=== PATIENT | female | born 2005 | race Caucasian/White ===

== ENCOUNTER 2025-05-14 05:41 | Emergency (ER) | payer OTHER, SELFPAY ==
[2025-05-14 05:43] VITALS: BP 118/74; PULSE 77; TEMP 36.8; O2SAT 100; BMI 19.5
--- NOTE | 2025-05-14 05:53 | XR_ITS ---
[facility] [place] [id number] Patient Name: CHARLES POOLE MRN: [id number] date: 2005 Sex: F Assigned Patient Location: ED.MAIN Current Patient Location: Accession/Order Number: [id number] Exam Date: 05/14/2025 08:32 Report Date: 05/14/2025 08:33 At the request of: CESIA LOOMIS Procedure: XR wrist LT min 3V LEFT WRIST - 3 views CLINICAL HISTORY: wrist pain COMPARISON: None FINDINGS: No focal soft tissue abnormality. No acute bony process is seen. Joint spaces appear maintained. No bony erosions. XR/XR wrist LT min 3V IMPRESSION: NO ACUTE BONY PROCESS. Impression dictated by: Peewee Manzano Jr., D.O. 05/14/2025 8:33 AM Dictation Location: [place] [address] Electronically authenticated by: [id number] Y Date: 05/14/2025 08:33
--- OUTSIDE RECORDS SUMMARY | 2025-05-14 05:58 | XMS_ITS | Encounter Summary ---
Author Organization [facility] Address [address] [place] [address] Care Team Providers Care Office Messenger Helper Name Role Phone Unavailable Primary Care Provider Unavailabl e Source Comments In the event this information is protected by the Federal Confidentiality of Alcohol and Drug AbusePatient Records regulations: The Federal rules restrict any use of the information to criminally investigate or prosecute any alcohol or drug abuse patient.[facility] Encounter Details Date Type Department Care Team (Late st Contact Info) Description 01/29/2023 Patient Msg Psychology [id number] [place] [id number] Mishel Ibarra, Research Nurse Missed Appointment Social History Tobacco Use Types Packs/Day Years Used Date Smoking Tobacco: Never Smokeless Tobacco: Never Alcohol Use Standard Drinks/Week Comments Never 0 (1 standard drink = 0.6 oz pur e alcohol) PHQ-2 Answer Date Recorded PHQ-2 score 3 01/29/2023 [place] Depression Scale Answer Date Recorded [place] Depression Scale Total 14 12/04/2022 The thought of harming myself has occurred to me . Never 12/04/2022 Area Deprivation Index Answer Date Jonathan rded National Score (1-100), lower number is lower ri sk 39 12/04/2022 State Score (1-10), lower number is lower risk N ot on file 12/04/2022 Data from: https://www.neighborhoodatlas.[facility]/. Last address used for calculation [address] [facility] 12/04/2022 Comments No Sex and Gender Information Value Date Recorded Sex Assigned at Not on file Legal Sex Female 11:43 AM EDT Gender Identity Not on file Sexual Orientation Not on file documented as of this encounter Functional Status * Are you deaf or do you have serious difficulty hearing? Answer Date of Assessment Author No 11/23/2022 11:55 AM Fercho Ross RN * Are you blind or do you have serious difficulty seeing, even when wearing glasses? Answer Date of Assessment Author No 11/23/2022 11:55 AM Fercho Ross RN * Do you have serious difficulty walking or climbing stairs? Answer Date of Assessment Author No 11/23/2022 11:55 AM Fercho Ross RN * Do you have difficulty dressing or bathing? Answer Date of Assessment Author No 11/23/2022 11:55 AM Fercho Ross RN * Because of a physical, mental, or emotional condition, do you have difficulty doing errands alone such as visiting a doctor's office or shopping? Answer Date of Assessment Author No 11/10/2022 10:07 PM Concetta Christy RN documented as of this encounter Mental Status * Because of a physical, mental, or emotional condition, do you have serious difficulty concentrating, remembering, or making decisions? Answer Entry Date Author No 11/23/2022 11:55 AM Fercho Ross RN documented in this encounter Plan of Treatment Not on file documented as of this encounter Visit Diagnoses Not on filedocumented in this encounter
--- OUTSIDE RECORDS SUMMARY | 2025-05-14 05:58 | XMS_ITS | Encounter Summary ---
Author Organization [facility] Address [address] [place] [address] Care Team Providers Care Sexton Helper Name Role Phone Unavailable Primary Care Provider Unavailabl e Source Comments In the event this information is protected by the Federal Confidentiality of Alcohol and Drug AbusePatient Records regulations: The Federal rules restrict any use of the information to criminally investigate or prosecute any alcohol or drug abuse patient.[facility] Encounter Details Date Type Department Care Team (Late st Contact Info) Description 12/30/2022 Patient Msg Psychology [address] [place] [phone] Mishel Ibarra, Research Nurse After-Visit Summary Social History Tobacco Use Types Packs/Day Years Used Date Smoking Tobacco: Never Smokeless Tobacco: Never Alcohol Use Standard Drinks/Week Comments Never 0 (1 standard drink = 0.6 oz pur e alcohol) PHQ-2 Answer Date Recorded PHQ-2 score 3 12/30/2022 [place] Depression Scale Answer Date Recorded [place] Depression Scale Total 14 12/04/2022 The thought of harming myself has occurred to me . Never 12/04/2022 Area Deprivation Index Answer Date Jonathan rded National Score (1-100), lower number is lower ri sk 39 12/04/2022 State Score (1-10), lower number is lower risk N ot on file 12/04/2022 Data from: https://www.neighborhoodatlas.[facility]/. Last address used for calculation [address] [facility] 12/04/2022 Comments No Sex and Gender Information [...]
--- OUTSIDE RECORDS SUMMARY | 2025-05-14 05:58 | XMS_ITS | Clinical Summary ---
Author Organization [facility] Address [address] [place] [address] Care Team Providers Care Platform Stapler Name Role Phone Unavailable Primary Care Provider Unavailabl e Allergies No known active allergies Medications * This document contains information received from the source organization and may not represent a complete record from that organization. No known medications Active Problems Problem Noted Date Diagnosed Date Young primigravida in first trimester 04/29/2022 Resolved Problems Problem Noted Date Diagnosed Date Resolved Date Normal labor 11/20/2022 12/13/2023 Encounter for planned induction of labor 11/19/2022 12/13/2023 39 weeks gestation of 11/10/2022 12/13/2023 Overview (11/10/2022): - GBS neg - Consent signed (CNM), pt plans on does not wish for IOL at this time. - Pt plans on - BC nexplanon - F/u 1wk RPN - Reviewed s/o labor, indications to call office at [phone]/proceed to hospital. 04/29/2022 12/13/2023 Immunizations Immunization Administration Dates Next Due influenza (IIV4) vaccine, ag e 6 mo - 64 yr, quadrivalent, PF (AFLURIA, FLUARIX, FLULAVAL, FLUZONE) 10/12/2022 tetanus diphtheria pertussis (Tdap) vaccine, age 7+ yr (ADACEL, BOOSTRIX) 10/01/2022 Social History Tobacco Use Types Packs/Day Years Used Date Smoking Tobacco: Never Smokeless Tobacco: Never Tobacco Cessation:Counseling Given: Not Answered Alcohol Use Standard Drinks/Week Comments Never 0 (1 standard drink = 0.6 oz pur e alcohol) PHQ-2 Answer Date Recorded PHQ-2 score 3 01/29/2023 [place] Depression Scale Answer Date Recorded [place] Depression Scale Total 14 12/04/2022 The thought of harming myself has occurred to me . Never 12/04/2022 Area Deprivation Index Answer Date Jonathan rded National Score (1-100), lower number is lower ri sk 39 12/13/2023 State Score (1-10), lower number is lower risk 2 12/13/2023 Data from: https://www.neighborhoodatlas.medicine.[facility]/. Last address used for calculation [address] [facility] 12/13/2023 Comments No Sex and Gender Information Value Date Recorded Sex Assigned at Not on file Legal Sex Female 11:43 AM EDT Gender Identity Not on file Sexual Orientation Not on file Last Filed Vital Signs Vital Sign Reading Time Taken Comments Blood Pressure 132/75 12/13/2023 7:13 AM EST Pulse 86 12/13/2023 7:13 AM EST Temperature 36.8 C (98.2 F) 11/23/2022 9:07 AM EST Respiratory Rate 16 11/23/2022 9:07 AM EST Oxygen Saturation 97% 11/23/2022 9:07 AM EST Inhaled Oxygen Concentration - - Weight 43.2 kg (95 lb 3.8 oz) 12/13/2023 7:13 AM EST Height 149.9 cm (4' 11 ) 12/13/2023 7:13 AM EST Body Mass Index 19.24 12/13/2023 7:13 AM EST Plan of Treatment Health Maintenance Due Date Last Done Comments Peds To Adult Transition Ini tial Discussion 2016 HPV Vaccine (2 - 2-dose series) 12/23/2017 7 Peds To Adult Transition Mabel ual Assessment 2018 Meningococcal B Vaccine (1 o f 2 - Standard) 2020 Anxiety Screening 2022 Depression Screening 2022 Chlamydia Screening (18-24) 04/29/2023 04/29/2022 GC (Gonorrhea) Screening (18-24) 04/29/2023 04/29/20 22 Covid-19 Vaccine (2023-2 5 season) 2024 Influenza Vaccine (#1) 2025 2, 05/25/2015, 08/14/2009, Additional history exists DTaP,Tdap,Td Vaccine (8 - Td or Tdap) 10/01/2032 10/01/2022, 03/01/2017, 08/23/2008, Additional history exists Hepatitis B Vaccine Completed 02/09/2005, 2004, 2004 HIV Screening Completed 06/22/2022 Hepatitis C Screening Completed 06/22/2022 Procedures Procedure Name Priority Date/Time Associated Diagnosis Comments HIV 1/2 COMBO WITH REFLEX TO DIFFERENTIATION Routine 06/22/2022 12:16 PM EDT Young primigravida in first trimester Encounter for care in first trimester of first HEPATITIS C ANTIBODY IA WITH CONFIRMATION Routine 06/22/2022 12:16 PM EDT Young primigravida in first trimester Encounter for care in first trimester of first (INACTIVE)GC/CHLAMYDIA AMPLF, URINE Routine 04/29/2022 11:36 AM EDT Young primigravida in first trimester Encounter for care in first trimester of first from Last 3 Months or Most Recently Relevant to Health Maintenance Results * HIV 1 2 COMBO(AG/AB),WITH REFLEX TO DIFFERENTIATION (06/22/2022 12:16 PM EDT) HIV 12 Combo (Ag/Ab) Nonreactive Nonreactive 06/22/2022 7:20 PM EDT [facility] HIV-1/2 AB (Confirmatory) 06/22/2022 7:20 PM EDT [facility] Comment:Test not indicated. HIV Interpretation 06/22/2022 7:20 PM EDT [facility] Comment: No evidence of HIV-1 or HIV-2 infection. Should recent infection be suspected, repeat testing may be considered 2-3 weeks after this draw. [place] Rev. Code 3701.243(E): This information has been disclosed to you from confidential records protected from disclosure by state law. You shall make no further disclosure of this information without the specific, written, and informed release of the individual to whom it pertains or as otherwise permitted by state law. A general authorization for the release of medical or other information is not sufficient for the purpose of the release of HIV test results or diagnoses. Blood BLOOD SPECIMEN / Unknown Venipuncture / Unknown 06/22/2022 12:16 PM EDT 06/22/2022 12:16 PM EDT Vani Hernandez PRINTER MAINTAINER.[facility] Fin al Result Performing Organization Address City/[facility]/ZIP Co de Phone Number [facility] [address] [place] [id number], [place] * HEP C AB IA W/CONF SCRN (06/22/2022 12:16 PM EDT) Hep C Antibody IA Negative Negative 06/22/2022 6:57 PM EDT [facility] Comment:The result suggests no evidence of active infection with Hepatitis C virus. Should recent infection be suspected, repeat testing may be considered 4-6 weeks after this draw. Blood BLOOD SPECIMEN / Unknown Venipuncture / Unknown 06/22/2022 12:16 PM EDT 06/22/2022 12:16 PM EDT Vani Hernandez PRINTER MAINTAINER.[facility] Fin al Result Performing Organization Address [facility] Co de Phone Number [facility] [place] [phone], [place] * GC/CHLAMYDIA AMPLIF, URINE (04/29/2022 11:36 AM EDT) Neisseria gonorrhoeae RNA Negative for Neisseria gonorrhoeae by amplification Negative for Neisseria gonorrhoeae by amplification PANTHER SYSTEM HOLOGIC 04/30/2022 2:17 AM EDT [facility] Chlamydia trachomatis RNA Negative for Chlamydia trachomatis by amplification Negative for Chlamydia trachomatis by amplificaton PANTHER SYSTEM HOLOGIC 04/30/2022 2:17 AM EDT [facility] Urine URINE SPECIMEN / Unknown Non Blood / Unknown 04/29/2022 11:36 AM EDT 04/29/2022 5:10 PM EDT Narrative [facility] - 04/30/2022 2:17 AM EDT For screening asymptomatic women, a vaginal swab specimen(APTIMA vaginal swab [id number]) is optimal. Urine specimens have reduced sensitivity for Chlamydia trachomatis or Neisseria gonorrhoeae infection in female patients without symptoms. us Vani Hernandez APRN.[facility] [employer] Fin al Result [facility] [address] [facility] [address] [place] [address], [place] from Last 3 Months or Most Recently Relevant to Health Maintenance Insurance [employer] MEDICAID [employer]
--- OUTSIDE RECORDS SUMMARY | 2025-05-14 05:58 | XMS_ITS | Encounter Summary ---
Author Organization [facility] Address [address] [place] [address] Care Team Providers Care Chemical Research Technician Name Role Phone Unavailable Primary Care Provider Unavailabl e Source Comments In the event this information is protected by the Federal Confidentiality of Alcohol and Drug AbusePatient Records regulations: The Federal rules restrict any use of the information to criminally investigate or prosecute any alcohol or drug abuse patient.[facility] Encounter Details Date Type Department Care Team (Late st Contact Info) Description 12/03/2022 Patient [facility] [place] [address] [place] [id number] Provider, [facility] Unable to Reach You Social History Tobacco Use Types Packs/Day Years Used Date Smoking Tobacco: Never Smokeless Tobacco: Never Alcohol Use Standard Drinks/Week Comments Never 0 (1 standard drink = 0.6 oz pur e alcohol) [place] Depression Scale Answer Date Recorded [place] Depression Scale Total 14 12/04/2022 The thought of harming myself has occurred to me . Never 12/04/2022 Area Deprivation Index Answer Date Jonathan rded National Score (1-100), lower number is lower ri sk 39 12/04/2022 State Score (1-10), lower number is lower risk N ot on file 12/04/2022 Data from: https://www.neighborhoodatlas.medicine.[facility].edu/. Last address used for calculation [address] [facility] 12/04/2022 Comments No Sex and Gender Information [...]
--- OUTSIDE RECORDS SUMMARY | 2025-05-14 05:58 | XMS_ITS | Encounter Summary ---
Author Organization [facility] Address [facility] [place] [address] Care Team Providers Care Mayonnaise Mixer Name Role Phone Unavailable Primary Care Provider Unavailabl e Source Comments In the event this information is protected by the Federal Confidentiality of Alcohol and Drug AbusePatient Records regulations: The Federal rules restrict any use of the information to criminally investigate or prosecute any alcohol or drug abuse patient.[facility] Encounter Details Date Type Department Care Team (Late st Contact Info) Description 12/04/2022 Patient Msg Obstetrics/Gynecology [address] [facility] [address] [place] [address] Provider, [facility] resources Social History Tobacco Use Types Packs/Day Years Used Date Smoking Tobacco: Never Smokeless Tobacco: Never Alcohol Use Standard Drinks/Week Comments Never 0 (1 standard drink = 0.6 oz pur e alcohol) [place] Depression Scale Answer Date Recorded [place] Depression Scale Total 14 12/04/2022 The thought of harming myself has occurred to me . Never 12/04/2022 Area Deprivation Index Answer Date Jonathan rded National Score (1-100), lower number is lower ri sk 39 12/04/2022 State Score (1-10), lower number is lower risk N ot on file 12/04/2022 Data from: https://www.neighborhoodatlas.medicine.[facility].edu/. Last address used for calculation [address] [facility] 12/04/2022 Comments No Sex and Gender Information [...]
--- OUTSIDE RECORDS SUMMARY | 2025-05-14 05:58 | XMS_ITS | Clinical Summary ---
Author Organization [facility] Address [id number] [place] [address] Care Team Providers Care Vocational Education Professional Name Role Phone Services, [facility] Primary Care Provider Allergies No known active allergies Medications * This document contains information received from the source organization and may not represent a complete record from that organization. doxylamine-pyri doxine, vit B6, (DICLEGIS) 10-10 mg tablet,delayed release (DR/EC) Take 2 tablets by mouth in the morning. 30 tablet Active Additional Information Patient not taking.Reported on 04/20/2024 Active Problems Problem Noted Date Diagnosed Date Generalized anxiety disorder 11/22/2021 Current moderate episode of major depressive disorder without prior episode 11/20/2021 Ingestion of substance 11/18/2021 Resolved Problems Problem Noted Date Diagnosed Date Resolved Date Depression with suicidal ideation 11/18/2021 11/22/2021 Pneumonia 09/14/2021 11/22/2021 Family History Medical History Relation Name Comments Schizophrenia Father Relation Name Status Comments Father Social History Tobacco Use Types Packs/Day Years Used Date Smoking Tobacco: Never Smokeless Tobacco: Never Alcohol Use Standard Drinks/Week Comments No 0 (1 standard drink = 0.6 oz pur e alcohol) Childcare Answer Date Recorded Childcare Unknown 04/05/2019 Employment Answer Date Recorded Employment Unknown 04/05/2019 Hunger Screening Answer Date Recorded Within the past 12 months we worried whether our food would run out before we got money to buy more. Never True 06/22/2024 Within the past 12 months th e food we bought just didn't last and we didn't have money to get more. Never True 06/22/2024 Purpose - Life Answer Date Recorded Purpose and direction in life Unknown Comments Unknown Sex and Gender Information Value Date Recorded Sex Assigned at Not on file Legal Sex Female 12:04 PM EDT Gender Identity Not on file Sexual Orientation Not on file Last Filed Vital Signs Vital Sign Reading Time Taken Comments Blood Pressure 128/85 06/22/2024 1:21 PM EDT Pulse 81 06/22/2024 1:21 PM EDT Temperature 36.8 C (98.2 F) 06/22/2024 1:21 PM EDT Respiratory Rate 16 06/22/2024 1:21 PM EDT Oxygen Saturation 100% 06/22/2024 1:21 PM EDT Inhaled Oxygen Concentration - - Weight 44.5 kg (98 lb) 06/22/2024 1:21 PM EDT Height 152.4 cm (5') 06/22/2024 1:21 PM EDT Body Mass Index 19.14 06/22/2024 1:21 PM EDT Plan of Treatment Health Maintenance Due Date Last Done Comments Depression Screening 2016 Chlamydia Screening 04/29/2023 04/29/2022 Adult BMI Screening 06/22/2025 06/22/2024 Tobacco Screening 06/22/2025 06/22/2024 Influenza Vaccine 06/25/2025 10/12/2022, , 08/14/2009, Additional history exists DTaP,Tdap and Td Vaccines (8 - Td or Tdap) 10/01/2032 10/01/2022, 03/01/2017, 08/23/2008, Additional history exists Medical Devices Not on file Advance Directives * Full Code (Latest Code Status on File) Date Activated Date Inactivated Comments 11/20/2021 9:13 AM 11/22/2021 3:44 PM * Full Code Date Activated Date Inactivated Comments 11/18/2021 6:19 AM 11/18/2021 5:19 PM * Full Code Date Activated Date Inactivated Comments 09/14/2021 3:29 PM 09/16/2021 5:17 PM Care Teams Vocational Education Professional Relationship Specialty Start Date End Date Services, [facility] [address] [place], [place] PCP - General Family Medicine 05/30/17
--- OUTSIDE RECORDS SUMMARY | 2025-05-14 05:59 | XMS_ITS | Encounter Summary ---
Author Organization [facility] Address [address] [place] [address] Care Team Providers Care Paper Reel Operator Name Role Phone Unavailable Primary Care Provider Unavailabl e Source Comments In the event this information is protected by the Federal Confidentiality of Alcohol and Drug AbusePatient Records regulations: The Federal rules restrict any use of the information to criminally investigate or prosecute any alcohol or drug abuse patient.[facility] Encounter Details Date Type Department Care Team (Late st Contact Info) Description 01/21/2024 Patient Msg Neurology [address] [place] [phone] Provider, Cc New Provider Social History Tobacco Use Types Packs/Day Years Used Date Smoking Tobacco: Never Smokeless Tobacco: Never Alcohol Use Standard Drinks/Week Comments Never 0 (1 standard drink = 0.6 oz pur e alcohol) PHQ-2 Answer Date Recorded PHQ-2 score 3 01/29/2023 [place] Depression Scale Answer Date Recorded [place] Depression Scale Total 14 12/04/2022 The thought of harming myself has occurred to me . Never 12/04/2022 Area Deprivation Index Answer Date Jonathan rded National Score (1-100), lower number is lower ri sk 39 12/13/2023 State Score (1-10), lower number is lower risk 2 12/13/2023 Data from: https://www.neighborhoodatlas.[facility]/. Last address used for calculation [address] [facility] 12/13/2023 Comments No [...]
--- OUTSIDE RECORDS SUMMARY | 2025-05-14 05:59 | XMS_ITS | Clinical Summary ---
Author Organization [facility] Address [address] [facility], [address] [place] [address] Care Team Providers Care Crayon Molding Machine Operator Name Role Phone Vega Amos MD Primary Care Provider [phone] Allergies No known active allergies Medications acetaminophen (TYLENOL) 325 MG tablet Take 650 mg by mouth every 6 hours as needed for Pain Active MV-Min-Fe Fum-FA-DHA ( 1 PO) Take by mouth Active Active Problems Problem Noted Date Diagnosed Date Viral upper respiratory infection 07/15/2022 22 weeks gestation of 07/15/2022 Poor growth affecting management of mother in second trimester 07/15/2022 Social History Tobacco Use Types Packs/Day Years Used Date Smoking Tobacco: Never Smokeless Tobacco: Never Tobacco Cessation:Counseling Given: Not Answered Alcohol Use Standard Drinks/Week Comments Never 0 (1 standard drink = 0.6 oz pur e alcohol) AUDIT-C Answer Date Recorded Q1: How often do you have a drink containing alcohol? Never 12/02/2022 Q2: How many drinks containi ng alcohol do you have on a typical day when you are drinking? Patient does not drink Q3: How often do you have si x or more drinks on one occasion? Never 12/02/2022 Comments No Sex and Gender Information Value Date Recorded Sex Assigned at Not on file Legal Sex Female 1:28 PM EDT Gender Identity Not on file Sexual Orientation Not on file Last Filed Vital Signs Vital Sign Reading Time Taken Comments Blood Pressure 132/83 12/02/2022 11:08 PM EST Pulse 89 12/02/2022 11:08 PM EST Temperature 36.7 C (98.1 F) 12/02/2022 11:08 PM EST Respiratory Rate 18 12/02/2022 11:08 PM EST Oxygen Saturation 99% 12/02/2022 11:08 PM EST Inhaled Oxygen Concentration - - Weight 54.9 kg (121 lb) 12/02/2022 11:08 PM EST Height 154.9 cm (5' 1 ) 12/02/2022 11:08 PM EST Body Mass Index 22.86 12/02/2022 11:08 PM EST Plan of Treatment Health Maintenance Due Date Last Done Comments COVID-19 Vaccine (1 - 2023-2 5 season) 2024 Flu vaccine (#1) 05/25/2025 10/12/2022 DTaP/Tdap/Td vaccine (2 - Td or Tdap) 10/01/2032 10/01/2022 Polio vaccine Aged Out No longer elig emeterio based on patient's age to complete this topic Insurance [employer] Care Teams Crayon Molding Machine Operator Relationship Specialty Start Date End Date Vega Amos MD [address] [facility] [place] [address] PCP - General Internal Medicine 06/16/22
--- NOTE | 2025-05-14 06:46 | ED.UPPEXIN1 ---
HPI HPI - Extremity Injury (Upper) General Chief Complaint: Extremity Injury, Upper Stated Complaint: BWC; L WRIST INJURY/ PAIN Time Seen by Provider: 05/14/25 05:46 Source: patient Mode of arrival: walk-in Limitations: no limitations History of Present Illness HPI narrative: cc - wrist injury States that she smacked the left wrist against a cabinet around 430am. She complains of pain throughout the left wrist. She is right handed. Nothing taken for the pain. Related Data Home Medications �Medication �Instructions �Recorded �Confirmed No Known Home Medications 05/14/25 05/14/25 Allergies Allergy/AdvReac Type Severity Reaction Status Date / Time No Known Drug Allergies Allergy Verified 05/14/25 05:51 Opioid HPI Opioid Management Most Recent Pain and Opioid Data: Last Pain Scale 7 Today, 05:55 Last ED Pain Assessment Today, 05:55 PFSH PFSH Social History Little interest or pleasure in doing things: not at all Feeling down, depressed, or hopeless: not at all Exam Narrative Exam Narrative: Nurses notes and vital signs reviewed and patient is not hypoxic. afebrile General: Well-appearing and in no apparent distress. Skin: Warm, dry, no pallor noted. Cardiovascular: Normal peripheral perfusion. Respiratory: No accessory muscle use or respiratory distress. Musculoskeletal: Tenderness throughout the left wrist -no swelling or ecchymosis noted. No bony deformity. Fingers of the left hand with normal ROM, no hand or forearm tenderness, no upper extremity edema/swelling Neurological: A&O x4. No cranial nerve dysfunction observed. No truncal ataxia. Moves all extremities. Sensation intact. Psychiatric: Cooperative and interactive. Normal mood and affect. Constitutional Vital Signs, click to edit/add: Last Vital Signs Temp 98.2 F 05/14/25 05:43 Pulse 77 05/14/25 05:43 Resp 18 05/14/25 05:43 BP 118/74 05/14/25 05:43 Pulse Ox 100 05/14/25 05:43 O2 Del Method Room Air 05/14/25 05:43 Course Vital Signs Vital signs: Vital Signs Temperature 98.2 F 05/14/25 05:43 Pulse Rate 77 05/14/25 05:43 Respiratory Rate 18 05/14/25 05:43 Blood Pressure 118/74 05/14/25 05:43 Pulse Oximetry 100 05/14/25 05:43 Oxygen Delivery Method Room Air 05/14/25 05:43 Temperature 98.2 F 05/14/25 05:43 Pulse Rate 77 05/14/25 05:43 Respiratory Rate 18 05/14/25 05:43 Blood Pressure 118/74 05/14/25 05:43 Pulse Oximetry 100 05/14/25 05:43 Oxygen Delivery Method Room Air 05/14/25 05:43 MDM - Extremity Injury (Upper) MDM Narrative Medical decision making narrative: no fractures identified on xrays of the left wrist. Patient was informed of negative x-rays and given reassurance. ED nurse was asked to apply an Daniel wrap to the patient's left wrist. The patient was discharged home with recommendation to take Tylenol Motrin for pain. This is a work-related incident so she will need to follow-up with Worker's Comp. Discharge Plan Discharge Chief Complaint: Extremity Injury, Upper Clinical Impression: Contusion of left wrist Patient Disposition: Home, Self-Care Time of Disposition Decision: 06:52 Prescriptions / Home Meds: No Action No Known Home Medications Print Language: [place] Instructions: Wrist Injury (ED), Contusion in Adults (ED) Additional Instructions: The patient was given paperwork with options for Workmen's Comp followup. Referrals: Physician,Non-Staff, MD [Primary Care Provider] - 1 week
== END 2025-05-14 07:01 | disposition home or self-care (01) ==
PROVIDERS: Emergency Provider Emergency Medicine
DX: S60.212A Contusion of left wrist, initial encounter (principal); W22.03XA Walked into furniture, initial encounter
CPT/HCPCS: 73110; 99283